=== PATIENT | female | born 2000 | race Two or more races ===

== ENCOUNTER 2018-05-13 16:51 | Emergency (ER) | payer OTHER ==
[~2018-05-13] VITALS: Ht 170.2 cm; Wt 74.8 kg
[2018-05-13] MEDS ORDERED: LEVAQUIN500 MG (17:19)
== END 2018-05-13 21:26 | disposition home or self-care (01) ==
LOC: ER 16:51
DX: B34.9 Viral infection, unspecified (principal); N39.0 Urinary tract infection, site not specified